=== PATIENT | male | born 1985 | race Hispanic/Latino ===

== ENCOUNTER 2018-07-28 19:24 | Emergency (ER) | payer OTHER ==
[2018-07-28 19:33] VITALS: BP 135/65; PULSE 97; RESP 17; TEMP 97.8; O2SAT 99
--- NOTE | 2018-07-28 20:03 | C.PDOC ---
History Of Present Illness 33 y/o male presents to ED requesting rabies vaccine but denies ever being bitten by an animal. States he googled the symptoms of rabies and believes he acquired rabies just from breathing. Upon more questioning, patient became agitated when told that the rabies vaccine is only given if bitten by an animal. He states that he still wants the vaccine because hes having jaw pain. States he hasnt slept in 2 days. Denies fever, chills, headache, dizziness, weakness, SOB, chest pain, nausea, vomiting, diarrhea, or abdominal pain. Chief Complaint (Nursing): Medical Clearance History Per: Patient History/Exam Limitations: no limitations Onset/Duration Of Symptoms: Hrs Current Symptoms Are (Timing): Still Present Past Medical History Reviewed: Historical Data, Nursing Documentation, Vital Signs Vital Signs: Last Vital Signs Temp 97.8 F 07/28/18 19:28 Pulse 97 H 07/28/18 19:28 Resp 17 07/28/18 19:28 BP 135/65 07/28/18 19:28 Pulse Ox 99 07/28/18 19:28 - Medical History PMH: Anxiety Denies: Diabetes, Hepatitis, HIV, HTN, Seizures, Sexually Transmitted Disease Surgical History: Appendectomy - [employer] Procedures GROUP PSYCHOTHERAPY (02/24/17) INDIV PSYCHOTHERAPY FOR SUBSTANCE ABUSE TREATMENT, SUPPORT (02/24/17) INDIVIDUAL PSYCHOTHERAPY, SUPPORTIVE (02/24/17) MEDICATION MANAGEMENT (02/24/17) Family History: States: No Known Family Hx - Social History Hx Alcohol Use: Yes (Socially) Hx Substance Use: Yes - Immunization History Hx Tetanus Toxoid Vaccination: No Hx Influenza Vaccination: Yes Hx Pneumococcal Vaccination: No Review Of Systems Constitutional: Negative for: Fever, Chills, Weakness ENT: Positive for: Mouth Pain (jaw pain) Cardiovascular: Negative for: Chest Pain Respiratory: Negative for: Cough, Shortness of Breath Gastrointestinal: Negative for: Nausea, Vomiting Musculoskeletal: Positive for: Other (Jaw pain). Negative for: Neck Pain Skin: Negative for: Rash Neurological: Negative for: Headache ED Course And Treatment O2 Sat by Pulse Oximetry: 99 (RA) Pulse Ox Interpretation: Normal Medical Decision Making Medical Decision Making: Patient eloped prior to physical examination and getting crisis involved. 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 - Scribe Statement The provider has reviewed the documentation as recorded by the Scribe Caitie Taylor All medical record entries made by the Scribe were at my direction and personally dictated by me. I have reviewed the chart and agree that the record accurately reflects my personal performance of the history, physical exam, medical decision making, and the department course for this patient. I have also personally directed, reviewed, and agree with the discharge instructions and disposition.
== END 2018-07-28 19:28 | disposition left against medical advice (07) ==
LOC: C.ER 19:24 → SUPCPDRO 19:24 → C.ER 19:28
DX: Z00.00 Encounter for general adult medical examination without abnormal findings (principal)